=== PATIENT | female | born 1980 | race American Indian/Alaskan Native ===

== ENCOUNTER 2019-10-05 17:55 | Emergency (ER) | payer MEDICAID, OTHER ==
[2019-10-05 20:33] VITALS: BP 145/79
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
[2019-10-05] MEDS ORDERED: ACETAMINOPHEN 500 MG TAB PO ONE (21:11)
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
== END 2019-10-05 22:15 | disposition home or self-care (01) ==
LOC: ED 17:55
DX: S16.1XXA Strain of muscle, fascia and tendon at neck level, initial encounter (principal); S39.012A Strain of muscle, fascia and tendon of lower back, initial encounter; I10 Essential (primary) hypertension; Z98.890 Other specified postprocedural states; Z79.899 Other long term (current) drug therapy; V49.49XA Driver injured in collision with other motor vehicles in traffic accident, initial encounter; Y93.89 Activity, other specified; Y92.410 Unspecified street and highway as the place of occurrence of the external cause; Y99.8 Other external cause status
CPT/HCPCS: 72040; 99283